=== PATIENT | female | born 1985 | race Caucasian/White ===

== ENCOUNTER → 2016-12-20 | Outpatient (CLI) | payer OTHER | LOC: RAD 07:37 | PROVIDERS: ATTEND Surgery | DX: N85.02 Endometrial intraepithelial neoplasia [EIN] (principal); R22.2 Localized swelling, mass and lump, trunk | CPT/HCPCS: 82565; 76856; 76830; 78306; 71260; A9503; Q9969 ==

== ENCOUNTER 2017-02-20 09:32 | Emergency (ER) | payer OTHER ==
--- NOTE | 2017-02-20 09:46 | ER Document Report ---
ED Medical Screen (RME) - General Chief Complaint: Vaginal Bleeding Stated Complaint: POST SURGERY BLEEDING Time Seen by Provider: 02/20/17 09:44 Notes: Patient had a hysterectomy for endometrial cancer 3 weeks ago and [place]. She had very little or no bleeding following her surgical procedure until she awakened this morning with "blood everywhere" her bed. Having some small amount of cramping. Says that yesterday she had a low-grade fever of 99. No other significant symptoms such as vomiting or diarrhea. PMH: NIDDM. TRAVEL OUTSIDE OF THE U[place]S. IN LAST 30 DAYS: No - Related Data Allergies/Adverse Reactions: No Known Allergies Allergy (Verified 02/20/17 09:42) Past Medical History - Past Medical History Cardiac Medical History: Reports: Hx Hypertension Pulmonary Medical History: Reports: Hx Bronchitis, Hx Pneumonia Endocrine Medical History: Reports: Hx Diabetes Mellitus Type 2 Renal/ Medical History: Denies: Hx Peritoneal Dialysis GI Medical History: Reports: Hx Gastroesophageal Reflux Disease Past Surgical History: Reports: Hx Appendectomy, Hx Tonsillectomy - T/A - Immunizations Hx Diphtheria, Pertussis, Tetanus Vaccination: Yes Physical Exam - Vital signs Vitals: Temp Pulse Resp BP Pulse Ox 98.1 F 102 H 16 143/101 H 97 02/20/17 09:37 02/20/17 09:37 02/20/17 09:37 02/20/17 09:37 02/20/17 09:37 Course - Vital Signs Vital signs: Temp Pulse Resp BP Pulse Ox 98.1 F 102 H 16 143/101 H 97 02/20/17 09:37 02/20/17 09:37 02/20/17 09:37 02/20/17 09:37 02/20/17 09:37
[2017-02-20 10:52] LABS: ABSOLUTE BASOPHILS # (AUTO) 0.1 10^3/uL (0.0-0.2); ABSOLUTE EOSINOPHILS # (AUTO) 0.3 10^3/uL (0.0-0.6); ABSOLUTE LYMPHOCYTES (AUTO) 2.6 10^3/uL (0.5-4.7); ABSOLUTE MONOCYTES (AUTO) 0.5 10^3/uL (0.1-1.4); ABSOLUTE NEUT (AUTO) 7.8 10^3/uL (1.7-8.2); BASOPHILS % (AUTO) 0.5 % (0-2); EOSINOPHILS % (AUTO) 2.3 % (0-6); HEMATOCRIT 39.5 % (36.0-47.0); HEMOGLOBIN 13.1 g/dL (12.0-15.5); HGB HCT DIFFERENCE -0.2; LYMPHOCYTES % (AUTO) 23.5 % (13-45); MEAN CORPUSCULAR HEMOGLOBIN 27.8 pg (27.0-33.4); MEAN CORPUSCULAR HGB CONC 33.1 g/dL (32.0-36.0); MEAN CORPUSCULAR VOLUME 84 fl (80-97); MONOCYTES % (AUTO) 4.8 % (3-13); RED BLOOD COUNT 4.71 10^6/uL (3.72-5.28); RED CELL DISTRIBUTION WIDTH 14.1 % (11.5-14.0); SEGMENTED NEUTROPHILS % (AUTO) 68.9 % (42-78); WHITE BLOOD COUNT 11.3 10^3/uL (4.0-10.5)
[2017-02-20 11:12] LABS: ALANINE AMINOTRANSFERASE 37 U/L (9-52); ALBUMIN 4.1 g/dL (3.5-5.0); ALKALINE PHOSPHATASE 113 U/L (38-126); ANION GAP 12 (5-19); ASPARTATE AMINO TRANSFERASE 17 U/L (14-36); BILIRUBIN,DIRECT 0.4 mg/dL (0.0-0.4); BILIRUBIN,TOTAL 0.7 mg/dL (0.2-1.3); BLOOD UREA NITROGEN 14 mg/dL (7-20); CALCIUM 9.6 mg/dL (8.4-10.2); CARBON DIOXIDE 27 mmol/L (22-30); CHLORIDE 101 mmol/L (98-107); CREATININE RESULT 0.51 mg/dL (0.52-1.25); GLUCOSE 125 mg/dL (75-110); POTASSIUM 3.8 mmol/L (3.6-5.0); SODIUM 140.1 mmol/L (137-145)
--- NOTE | 2017-02-20 11:30 | ER Document Report ---
ED General - General Chief Complaint: Vaginal Bleeding Stated Complaint: POST OP PROBLEMS Time Seen by Provider: 02/20/17 09:44 Mode of Arrival: Ambulatory Information source: Patient Notes: 31-year-old female who had a hysterectomy with ovaries in place due to a uterine cancer 3 weeks ago at [place] presents with spotting that occurred this morning. 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 Patient denies any abdominal pain patient notes temperature 99.9 yesterday denies any such symptoms today denies any vaginal discharge TRAVEL OUTSIDE OF THE U.S. IN LAST 30 DAYS: No - HPI Onset: This morning Onset/Duration: Sudden Quality of pain: Cramping Severity: Mild Pain Level: 1 Associated symptoms: Other Exacerbated by: Denies Relieved by: Denies Similar symptoms previously: No Recently seen / treated by doctor: Yes - Patient was seen by her surgeon 2 days prior - Related Data Allergies/Adverse Reactions: No Known Allergies Allergy (Verified 02/20/17 09:42) Past Medical History - Social History Smoking Status: Never Smoker Cigarette use (# per day): No Chew tobacco use (# tins/day): No Smoking Education Provided: No Family History: Reviewed & Not Pertinent - Past Medical History Cardiac Medical History: Reports: Hx Hypertension Pulmonary Medical History: Reports: Hx Bronchitis, Hx Pneumonia Endocrine Medical History: Reports: Hx Diabetes Mellitus Type 2 Renal/ Medical History: Denies: Hx Peritoneal Dialysis GI Medical History: Reports: Hx Gastroesophageal Reflux Disease Past Surgical History: Reports: Hx Appendectomy, Hx Tonsillectomy - T/A - Immunizations Hx Diphtheria, Pertussis, Tetanus Vaccination: Yes Review of Systems - Review of Systems Notes: PHYSICAL EXAMINATION: GENERAL: Well-appearing, well-nourished and in no acute distress. HEAD: Atraumatic, normocephalic. EYES: Pupils equal round and reactive to light, extraocular movements intact, conjunctiva are normal. ENT: Nares patent, oropharynx clear without exudates. Moist mucous membranes. NECK: Normal range of motion, supple without lymphadenopathy LUNGS: Breath sounds clear to auscultation bilaterally and equal. No wheezes rales or rhonchi. HEART: Regular rate and rhythm without murmurs ABDOMEN: Soft, nontender, nondistended abdomen. No guarding, no rebound. No masses appreciated. Female : Pelvic examination performed with tach in room notes only mild amount of blood with no active bleeding Musculoskeletal: Normal range of motion, no pitting or edema. No cyanosis. NEUROLOGICAL: Cranial nerves grossly intact. Normal speech, normal gait. Normal sensory, motor exams PSYCH: Normal mood, normal affect. SKIN: Four healing surgical incisions noted Physical Exam - Vital signs Vitals: Temp Pulse Resp BP Pulse Ox 98.1 F 102 H 16 143/101 H 97 02/20/17 09:37 02/20/17 09:37 02/20/17 09:37 02/20/17 09:37 02/20/17 09:37 Course - Re-evaluation Re-evalutation: 02/20/17 13:41 [facility] paged 02/20/17 13:59 Dr Sheffield has no other concerns will dc home , pt is very happy I believe the patient's bleeding is secondary to the sutures healing, ultrasound was negative blood work notes no significant abnormality Patient has not been actively bleeding in the emergency department 02/20/17 16:35 After performing a Medical Screening Examination, I estimate there is LOW risk for ACUTE APPENDICITIS, BOWEL OBSTRUCTION, ACUTE CHOLECYSTITIS, PERFORATED DIVERTICULITIS, INCARCERATED HERNIA, PANCREATITIS, PELVIC INFLAMMATORY DISEASE, PERFORATED ULCER, ECTOPIC , or TUBO-OVARIAN ABSCESS, thus I consider the discharge disposition reasonable. Also, there is no evidence or peritonitis , sepsis, or toxicity. I have reevaluated this patient multiple times and no significant life threatening changes are noted. The patient and I have discussed the diagnosis and risks, and we agree with discharging home with close follow-up with the understanding that symptoms and presentations can change. We also discussed returning to the Emergency Department immediately if new or worsening symptoms occur. We have discussed the symptoms which are most concerning (e.g., bloody stool, fever, changing or worsening pain, vomiting) that necessitate immediate return. - Vital Signs Vital signs: Temp Pulse Resp BP Pulse Ox 98.6 F 94 18 139/89 H 96 02/20/17 14:11 02/20/17 14:11 02/20/17 14:11 02/20/17 14:11 02/20/17 14:11 - Laboratory Result Diagrams: 02/20/17 10:42 02/20/17 10:42 Laboratory results interpreted by me: 02/20/17 02/20/17 10:42 10:42 WBC 11.3 H RDW 14.1 H Creatinine 0.51 L Glucose 125 H - Diagnostic Test Radiology reviewed: Image reviewed, Reports reviewed - Small amount of free fluid report given to patient Discharge - Discharge Clinical Impression: post hysterectomy bleeding, Vaginal bleeding Condition: Stable Disposition: HOME, SELF-CARE Additional Instructions: Follow up with your physician tomorrow for further care or return to the ED IMMEDIATELY if symptoms worsen or new concerns occur. If you cannot afford to follow up with your primary care physician a list of low cost clinics have been provided at the end of your discharge papers as well. Referrals: PREET SPENCER MD [Primary Care Provider] - Follow up as needed
--- NOTE | 2017-02-20 13:12 | RADIOLOGY REPORT (SQ) ---
EXAM DESCRIPTION: U/S NON-OB PELVIS TV W/O DOP COMPLETED DATE/TIME: 02/20/2017 12:53 pm REASON FOR STUDY: post hysterectomy bleeding COMPARISON: 12/20/2016 TECHNIQUE: Dynamic and static grayscale images acquired of the pelvis via transvaginal approach and recorded on PACS. Additional selected color Doppler and spectral images recorded. LIMITATIONS: None. FINDINGS: UTERUS: Surgically absent. ENDOMETRIAL STRIPE: Not applicable. CERVIX: Not applicable. RIGHT OVARY: No abnormal masses. RIGHT OVARY DOPPLER: Normal arterial vascular flow without evidence for torsion. LEFT OVARY: No abnormal masses. LEFT OVARY DOPPLER: Normal arterial vascular flow without evidence for torsion. FREE FLUID: There is a small amount free fluid. OTHER: No other significant finding. MEASUREMENTS: UTERUS: Not applicable. ENDOMETRIAL STRIPE: Not applicable. RIGHT OVARY: 28 x 20 x 21 mm LEFT OVARY: 29 x 26 x 25 mm IMPRESSION: There is a small amount of free fluid. The ovaries are unremarkable. TECHNICAL DOCUMENTATION: JOB ID: [id number] [employer]- All Rights Reserved
[2017-02-20 14:14] VITALS: BP 139/89
== END 2017-02-20 14:14 | disposition home or self-care (01) ==
LOC: ER 09:32
DX: N99.820 Postprocedural hemorrhage of a genitourinary system organ or structure following a genitourinary system procedure (principal); Y83.6 Removal of other organ (partial) (total) as the cause of abnormal reaction of the patient, or of later complication, without mention of misadventure at the time of the procedure; Z90.710 Acquired absence of both cervix and uterus; Z85.42 Personal history of malignant neoplasm of other parts of uterus; I10 Essential (primary) hypertension; E11.9 Type 2 diabetes mellitus without complications
CPT/HCPCS: 36415; 76830; 80053; 85025; 99284

== ENCOUNTER → 2017-09-18 | Outpatient (CLI) | payer OTHER ==
--- NOTE | 2017-09-18 11:12 | WOMENS IMAGING REPORT ---
EXAM DESCRIPTION: BILAT SCREENING MAMMO W/CAD COMPLETED DATE/TIME: 09/18/2017 8:24 am REASON FOR STUDY: ROUTINE SCREENING; Z12.31 Z12.31 ENCNTR SCREEN MAMMOGRAM FOR MALIGNANT NEOPLASM O F LEIGH COMPARISON: 2015 TECHNIQUE: Standard craniocaudal and mediolateral oblique views of each breast recorded using digita l acquisition. LIMITATIONS: None. FINDINGS: No masses, calcifications or architectural distortion. No areas of suspicion. Read with the assistance of CAD. .[facility] - R2 Cenova Version 1.3 .[facility] Imaging - R2 Cenova Version 1.3 .[facility] - R2 Cenova Version 2.4 .[facility] - R2 Cenova Version 2.4 .[facility] - R2 [employer] Version 9.2 IMPRESSION: NORMAL MAMMOGRAM. BIRADS 1. BREAST DENSITY: b. There are scattered areas of fibroglandular density. BIRAD: 1 NEGATIVE RECOMMENDATION: ROUTINE SCREENING COMMENT: The patient has been notified of the results by letter per SA requirements. Additional no tification policies are in place for contacting patient with suspicious or incomplete findings. Quality ID #[id number]: The [employer] recommends an annual screening mammogram for women aged 40 years or over. This facility utilizes a reminder system to ensure that all patients receive reminder letters, and/or direct phone calls for appointments. This includes reminders for routine scr eening mammograms, diagnostic mammograms, or other Breast Imaging Interventions when appropriate. Th is patient will be placed in the appropriate reminder system. The [employer] (ACR) has developed recommendations for screening MRI of the breast s in certain patient populations, to be used in conjunction with mammography. Breast MRI surveillanc e may be appropriate for women with more than 20% lifetime risk of developing breast cancer as deter mined by genetic testing, significant family history of the disease, or history of mantle radiation f or Hodgkins Disease. ACR Practice Guidelines 2008. TECHNICAL DOCUMENTATION: FINDING NUMBER: (1) ASSESSMENT: (1) JOB ID: [id number] [employer]- All Rights Reserved
== END ==
LOC: WI 07:50
PROVIDERS: ATTEND Physician Assistant
DX: Z12.31 Encounter for screening mammogram for malignant neoplasm of breast (principal)
CPT/HCPCS: 77067; G0202

== ENCOUNTER → 2017-10-11 | Outpatient (CLI) | payer OTHER ==
--- NOTE | 2017-10-11 13:53 | RADIOLOGY REPORT (SQ) ---
EXAM DESCRIPTION: T SPINE AP/LAT COMPLETED DATE/TIME: 10/11/2017 10:39 am REASON FOR STUDY: LOW BACK PAIN M54.6 PAIN IN THORACIC SPINE M54.5 LOW BACK PAIN COMPARISON: None. NUMBER OF VIEWS: Two views. TECHNIQUE: AP and lateral radiographic images acquired of the thoracic spine. LIMITATIONS: None. FINDINGS: MINERALIZATION: Normal. ALIGNMENT: Normal. No scoliosis. VERTEBRAE: No fracture or bone lesion. Maintained height, normal segmentation. DISCS: No significant loss of height or significant narrowing. No large osteophytes. HARDWARE: None in the spine. MEDIASTINUM AND SOFT TISSUES: Normal heart size and aortic contour. No soft tissue abnormality. VISUALIZED LUNG PIRES: Clear. OTHER: No other significant finding. IMPRESSION: NO SIGNIFICANT RADIOGRAPHIC FINDING IN THE THORACIC SPINE. TECHNICAL DOCUMENTATION: JOB ID: [id number] [employer]- All Rights Reserved
--- NOTE | 2017-10-11 13:54 | RADIOLOGY REPORT (SQ) ---
EXAM DESCRIPTION: L SPINE 2 VIEWS COMPLETED DATE/TIME: 10/11/2017 10:39 am REASON FOR STUDY: LOW BACK PAIN M54.6 PAIN IN THORACIC SPINE M54.5 LOW BACK PAIN COMPARISON: None. NUMBER OF VIEWS: Three views. TECHNIQUE: AP, lateral and sacral radiographic images acquired of the lumbar spine. LIMITATIONS: None. FINDINGS: MINERALIZATION: Normal. SEGMENTATION: Normal. No transitional anatomy. ALIGNMENT: Normal. VERTEBRAE: Maintained height. No fracture or worrisome bone lesion. DISCS: Preserved height. No significant osteophytes or end plate irregularity. POSTERIOR ELEMENTS: Pedicles and facets are intact. No pars defect or posterior arch defects. HARDWARE: None in the spine. PARASPINAL SOFT TISSUES: Normal. PELVIS: Intact as visualized. No fractures or worrisome bone lesions. SI joints intact. OTHER: No other significant finding. IMPRESSION: NORMAL 3 VIEW LUMBAR SPINE. TECHNICAL DOCUMENTATION: JOB ID: [id number] [employer]- All Rights Reserved
== END ==
LOC: RAD 09:54
PROVIDERS: ATTEND Physician Assistant
DX: M54.6 Pain in thoracic spine (principal); M54.5 Low back pain
CPT/HCPCS: 72070; 72100

== ENCOUNTER → 2018-04-10 | Outpatient (CLI) | payer BC ==
--- NOTE | 2018-04-10 09:45 | RADIOLOGY REPORT (SQ) ---
EXAM DESCRIPTION: U/S NON-OB PELVIS TV W/O DOP COMPLETED DATE/TIME: 04/10/2018 9:33 am REASON FOR STUDY: ENDOMETRIAL CA (C54.1) C54.1 MALIGNANT NEOPLASM OF ENDOMETRIUM COMPARISON: January 2017 TECHNIQUE: Dynamic and static grayscale images acquired of the pelvis via transabdominal and transva ginal approach and recorded on PACS. Additional selected color Doppler and spectral images recorded. LIMITATIONS: Study is limited due to the patient's body habitus and overlying bowel gas. FINDINGS: UTERUS: Status post hysterectomy. RIGHT OVARY AND DOPPLER: Right ovary was not visualized. LEFT OVARY AND DOPPLER: Left ovary was not visualized. FREE FLUID: None noted. OTHER: No other significant finding. IMPRESSION: Limited study as noted above. Status post hysterectomy. No significant pelvic abnormal ities were identified. TECHNICAL DOCUMENTATION: JOB ID: [id number] [employer]- All Rights Reserved Rev-02/13 Reading location - IP/workstation name: [email or web address]
--- NOTE | 2018-04-10 09:46 | RADIOLOGY REPORT (SQ) ---
EXAM DESCRIPTION: U/S NON-OB PELVIS W/O DOP COMPLETE DATE/TIME: 04/10/2018 9:33 am REASON FOR STUDY: ENDOMETRIAL CA (C54.1) C54.1 MALIGNANT NEOPLASM OF ENDOMETRIUM FINDINGS: Please see combined report for performance of procedure and radiologic supervision and int erpretation. IMPRESSION: Please see combined report for performance of procedure and radiologic supervision and i nterpretation. Reading location - IP/workstation name: [email or web address]
== END ==
LOC: RAD 08:47
PROVIDERS: ATTEND Obstetrics & Gynecology Gynecologic Oncology
DX: C54.1 Malignant neoplasm of endometrium (principal)
CPT/HCPCS: 76830; 76856

== ENCOUNTER 2018-08-31 09:10 | Emergency (ER) | payer BC ==
[2018-08-31] MEDS ORDERED: NORMAL SALINE 1000 ML 1,000 ML IV ONE (09:19)
--- NOTE | 2018-08-31 09:31 | ER Document Report ---
ED GI/ - General Chief Complaint: Flank Pain Stated Complaint: FLANK PAIN Time Seen by Provider: 08/31/18 09:17 Mode of Arrival: Ambulatory Information source: Patient Notes: 33-year-old female presented to ED for complaint of right flank pain with cramping. She states she has been experiencing urinary incontinence. She has a history of endometrial cancer but has been in remission. She had a partial hysterectomy she still has her ovaries. Patient is alert and oriented respirations regular and unlabored speaking in full sentences has minimal pain in her abdomen but more pain in her right CVA. TRAVEL OUTSIDE OF THE [place] IN LAST 30 DAYS: No - HPI Patient complains to provider of: Flank pain - Right Onset: Other - months Timing/Duration: Intermittent Quality of pain: Sharp Severity at maximum: Moderate Severity in ED: Moderate Pain Level: 3 Location: Right flank Vaginal bleeding (Compared to normal period): None Menstrual period history: Post-menopausal - hysterectomy Associated symptoms: Other - leaking urine Exacerbated by: Movement Relieved by: Denies Similar symptoms previously: Yes Recently seen / treated by doctor: No - Related Data Allergies/Adverse Reactions: No Known Allergies Allergy (Verified 08/31/18 09:11) Past Medical History - General Information source: Patient - Social History Smoking Status: Never Smoker Frequency of alcohol use: None Lives with: Family Family History: Reviewed & Not Pertinent Patient has suicidal ideation: No Patient has homicidal ideation: No - Past Medical History Cardiac Medical History: Reports: Hx Hypertension Pulmonary Medical History: Reports: Hx Bronchitis, Hx Pneumonia EENT Medical History: Reports: None Neurological Medical History: Reports: None Endocrine Medical History: Reports: Hx Diabetes Mellitus Type 2 Renal/ Medical History: Reports: None Malignancy Medical History: Reports: Other - Endometrial cancer with a hysterectomy GI Medical History: Reports: Hx Gastroesophageal Reflux Disease Musculoskeletal Medical History: Reports Hx Musculoskeletal Deformity, Reports Hx Musculoskeletal Trauma Skin Medical History: Reports None Psychiatric Medical History: Reports: None Traumatic Medical History: Reports: None Infectious Medical History: Reports: None Past Surgical History: Reports: Hx Appendectomy, Hx Hysterectomy, Hx Tonsillectomy - T/A - Immunizations Immunizations up to date: Yes Hx Diphtheria, Pertussis, Tetanus Vaccination: Yes Review of Systems - Review of Systems Constitutional: No symptoms reported EENT: No symptoms reported Cardiovascular: No symptoms reported Respiratory: No symptoms reported Gastrointestinal: No symptoms reported Genitourinary: Flank pain, Incontinence Female Genitourinary: No symptoms reported Musculoskeletal: No symptoms reported Skin: No symptoms reported Hematologic/Lymphatic: No symptoms reported Neurological/Psychological: No symptoms reported -: Yes All other systems reviewed and negative Physical Exam - Vital signs Vitals: Temp Pulse Resp BP Pulse Ox 98.6 F 74 16 141/97 H 96 08/31/18 09:14 08/31/18 09:14 08/31/18 09:14 08/31/18 09:14 08/31/18 09:14 Interpretation: Normal - General General appearance: Appears well, Alert Notes: Morbidly obese at 153.8 kg - HEENT Head: Normocephalic, Atraumatic Eyes: Normal Pupils: PERRL - Respiratory Respiratory status: No respiratory distress Chest status: Nontender Breath sounds: Normal Chest palpation: Normal - Cardiovascular Rhythm: Regular Heart sounds: Normal auscultation Murmur: No - Abdominal Inspection: Normal Distension: No distension Bowel sounds: Normal Tenderness: Tender - Right flank Organomegaly: No organomegaly - Back Back: Normal, Tender, CVA tenderness - Right. No: Deformity/step-off, Vertebra tenderness, Scars, Scoliosis, Wounds - Extremities General upper extremity: Normal inspection, Nontender, Normal color, Normal ROM , Normal temperature General lower extremity: Normal inspection, Nontender, Normal color, Normal ROM , Normal temperature, Normal weight bearing. No: María's sign - Neurological Neuro grossly intact: Yes Cognition: Normal Orientation: AAOx4 [place] Coma Scale Eye Opening: Spontaneous Vero Coma Scale Verbal: Oriented Vero Coma Scale Motor: Obeys Commands Vero Coma Scale Total: 15 Speech: Normal Motor strength normal: LUE, RUE, LLE, RLE Sensory: Normal - Psychological Associated symptoms: Normal affect, Normal mood - Skin Skin Temperature: Warm Skin Moisture: Dry Skin Color: Normal Course - Vital Signs Vital signs: Temp Pulse Resp BP Pulse Ox 98.4 F 85 16 128/94 H 97 08/31/18 11:50 08/31/18 11:50 08/31/18 11:50 08/31/18 11:50 08/31/18 11:50 - Laboratory Result Diagrams: 08/31/18 10:02 08/31/18 10:02 Laboratory results interpreted by me: 08/31/18 10:02 Creatinine 0.43 L Glucose 160 H - Diagnostic Test Radiology reviewed: Image reviewed, Reports reviewed Discharge - Discharge Clinical Impression: Right flank pain Condition: Stable Disposition: HOME, SELF-CARE Additional Instructions: Flank Pain We weren't able to prove an exact cause for your flank pain. Pain in the flank can be caused by a muscle strain or spasm. Sometimes a kidney stone causes pain, but can't be found on our tests. Infection in the kidney should be evident on a urine test. Early shingles can occasionally cause flank pain, without the rash that proves the diagnosis. On rare occasions, disease of the pancreas, aorta, spleen, or colon can create pain in the flank. At this time, there's no evidence of a dangerous condition, and it seems safe for you to be at home. If the pain goes away and does not come back, no further testing will be needed. If pain persists, or becomes more severe, we may need to repeat some tests or order additional new testing. Blood in the urine, urgency to urinate frequently, and pain that radiates to the groin can indicate a kidney stone. Fever may mean that the pain is due to infection, either of the kidney or the colon (diverticulitis). If your pain is early shingles, you should develop an eruption of blisters in the painful area within a few days. Call the doctor or return if you have pain that is spreading or becoming more severe, pain that does not resolve with time, fever, or any other new symptoms. Discussed your CT and lab values with you. There is no obvious reason for the flank pain except for muscle pain. Please follow-up with your primary care doctor and take your labs and CT report with you. Ibuprofen Ibuprofen is an excellent, safe drug for pain control. In addition, it has potent antiinflammatory effects which are beneficial, especially in the treatment of injuries, arthritis, or tendonitis. It's best to take ibuprofen with food. Persons with ulcer disease or allergy to aspirin should notify their physician of this before taking ibuprofen. Take the medication exactly as prescribed. Don't take additional doses unless instructed to do so by your doctor. If you develop wheezing, shortness of breath, hives, faintness, stomach pain, vomiting, or dark black stools, return for re-evaluation at once. Ice Packs Apply ice packs frequently against the painful area. Many different schedules are recommended, such as "20 minutes on, 20 minutes off" or "one hour ice, two hours rest." If you need to work, you may need to go longer between ice treatments. You should plan to have the area ice packed AT LEAST one fourth of the time. The ice should be applied over the wrap, tape, or splint, or over a layer of cloth -- not directly against the skin. Some ice bags have a built-in cloth and can be put directly on the skin. Warm Packs After approximately two days, apply gentle heat (such as a heating pad or hot water bottle) for about 20 to 30 minutes about every two hours -- at least four times daily. Warmth and elevation will help you make a more rapid recovery , and will ease the pain considerably. Do not use HOT heat, and never apply heat for longer than 30 minutes. The continuous heat can invisibly damage skin and muscles -- even when no burn is seen on the surface. Damaged muscles can make you MORE sore. Muscle Relaxers Muscle relaxing medications are usually prescribed for acute muscle spasm or injury to the neck and back. They are often combined with antiinflammatory pain medication for increased relief. You may stop the muscle relaxer when the pain and stiffness have improved. Start the medication again if spasms recur. Muscle relaxers may cause drowsiness, especially with the first dose. Do not operate machinery or drive while under the effects of the medication. Most muscle relaxers last up to 24 hours. Do not combine the medication with alcohol. Follow-Up Care Although no definite follow-up visit has been scheduled for you, you should return if there is unexpected worsening or a significant change in your symptoms. Prescriptions: Cyclobenzaprine HCl [Flexeril 10 mg Tablet] 10 mg PO TIDP PRN #15 tab PRN Reason: Forms: Elevated Blood Pressure, Return to Work Referrals: KAEL GOLDEN MD [NO LOCAL MD] - Follow up as needed
[2018-08-31 10:26] LABS: ABSOLUTE EOSINOPHILS # (AUTO) 0.2 10^3/uL (0.0-0.6); ABSOLUTE LYMPHOCYTES (AUTO) 2.5 10^3/uL (0.5-4.7); ABSOLUTE MONOCYTES (AUTO) 0.3 10^3/uL (0.1-1.4); ABSOLUTE NEUT (AUTO) 5.4 10^3/uL (1.7-8.2); BASOPHILS % (AUTO) 0.2 % (0-2); EOSINOPHILS % (AUTO) 2.1 % (0-6); HEMATOCRIT 39.8 % (36.0-47.0); HEMOGLOBIN 13.3 g/dL (12.0-15.5); LYMPHOCYTES % (AUTO) 29.9 % (13-45); MEAN CORPUSCULAR HEMOGLOBIN 27.6 pg (27.0-33.4); MEAN CORPUSCULAR HGB CONC 33.5 g/dL (32.0-36.0); MEAN CORPUSCULAR VOLUME 82 fl (80-97); MONOCYTES % (AUTO) 3.8 % (3-13); PLATELET COUNT 379 10^3/uL (150-450); RED BLOOD COUNT 4.83 10^6/uL (3.72-5.28); TOTAL CELLS COUNTED % (AUTO) 100 %; WHITE BLOOD COUNT 8.5 10^3/uL (4.0-10.5)
--- NOTE | 2018-08-31 10:46 | RADIOLOGY REPORT (SQ) ---
EXAM DESCRIPTION: CT LTD RENAL STONE PROTOCOL ON COMPLETED DATE/TIME: 08/31/2018 10:29 am REASON FOR STUDY: right flank pain COMPARISON: None. TECHNIQUE: CT scan of the abdomen and pelvis performed without intravenous or oral contrast. Images reviewed with lung, soft tissue, and bone windows. Reconstructed coronal and sagittal MPR images revi ewed. All images stored on PACS. All CT scanners at this facility use dose modulation, iterative reconstruction, and/or weight based d osing when appropriate to reduce radiation dose to as low as reasonably achievable (ALARA). [facility]: Dose Right [facility]: CareDose [facility]: Dose Right [facility]: Teradose 4D [facility]: Smart Technologies RADIATION DOSE: CT Rad equipment meets quality standard of care and radiation dose reduction techniq ues were employed. CTDIvol: 19.2 mGy. DLP: 1166 mGy-cm. LIMITATIONS: None. FINDINGS: LOWER CHEST: Borderline low right cardio phrenic lymph node measures 9-10 mm in short axi s diameter. NON-CONTRASTED LIVER, SPLEEN, ADRENALS: Evaluation limited by lack of IV contrast. No identified sign ificant masses. PANCREAS: No masses. No peripancreatic inflammatory changes. GALLBLADDER: No identified stones by CT criteria. No inflammatory changes to suggest cholecystitis. RIGHT KIDNEY AND URETER: No suspicious masses. Assessment limited by lack of IV contrast. No signif icant calcifications. No hydronephrosis or hydroureter. LEFT KIDNEY AND URETER: No suspicious masses. Assessment limited by lack of IV contrast. No signifi cant calcifications. No hydronephrosis or hydroureter. AORTA AND RETROPERITONEUM: No aneurysm. No retroperitoneal masses or adenopathy. BOWEL AND PERITONEAL CAVITY: No obvious masses or inflammatory changes. No free fluid. APPENDIX: Prior appendectomy. PELVIS, BLADDER, AND ABDOMINAL WALL: Prior hysterectomy. No abnormal masses. No free fluid. Bladder normal. BONES: No significant findings. OTHER: No other significant finding. IMPRESSION: 1. NO SIGNIFICANT OR ACUTE PROCESS IN THE ABDOMEN OR PELVIS. 2. Prior appendectomy and hysterectomy. COMMENT: Quality ID # [id number]: Final reports with documentation of one or more dose reduction techniques (e.g., Automated exposure control, adjustment of the mA and/or kV according to patient size, use of iterative reconstruction technique) TECHNICAL DOCUMENTATION: JOB ID: [id number]- All Rights Reserved Reading location - IP/workstation name: [email or web address]
[2018-08-31 10:50] LABS: ALANINE AMINOTRANSFERASE 29 U/L (9-52); ALBUMIN 4.1 g/dL (3.5-5.0); ALKALINE PHOSPHATASE 109 U/L (38-126); ANION GAP 11 (5-19); ASPARTATE AMINO TRANSFERASE 23 U/L (14-36); BILIRUBIN,DIRECT 0.2 mg/dL (0.0-0.4); BILIRUBIN,TOTAL 0.5 mg/dL (0.2-1.3); BLOOD UREA NITROGEN 12 mg/dL (7-20); CARBON DIOXIDE 30 mmol/L (22-30); CHLORIDE 101 mmol/L (98-107); GLUCOSE 160 mg/dL (75-110); POTASSIUM 3.9 mmol/L (3.6-5.0); SODIUM 141.8 mmol/L (137-145); TOTAL PROTEIN 7.1 g/dL (6.3-8.2)
[2018-08-31 11:15] LABS: APPEARANCE,URINE SLIGHTLY-CLOUDY; BILIRUBIN,URINE NEGATIVE (NEGATIVE); COLOR,URINE YELLOW; GLUCOSE, URINE NEGATIVE (NEGATIVE); KETONES,URINE NEGATIVE (NEGATIVE); LEUKOCYTE ESTERASE,URINE NEGATIVE (NEGATIVE); NITRITE,URINE NEGATIVE (NEGATIVE); PROTEIN,URINE NEGATIVE (NEGATIVE); URINE SPECIFIC GRAVITY 1.016; UROBILINOGEN,URINE NEGATIVE mg/dL (<2.0)
[2018-08-31 11:51] VITALS: BP 128/94
== END 2018-08-31 12:04 | disposition home or self-care (01) ==
LOC: ER 09:10
DX: R10.9 Unspecified abdominal pain (principal); R32 Unspecified urinary incontinence; Z85.44 Personal history of malignant neoplasm of other female genital organs; Z90.711 Acquired absence of uterus with remaining cervical stump; I10 Essential (primary) hypertension; E11.9 Type 2 diabetes mellitus without complications
CPT/HCPCS: 99284; 96360; 36415; 85025; 80053; 81001; 76380; J7030

== ENCOUNTER → 2018-09-23 | Outpatient (CLI) | payer BC, OTHER ==
--- NOTE | 2018-09-23 14:06 | WOMENS IMAGING REPORT ---
EXAM DESCRIPTION: BILAT SCREENING MAMMO W/CAD COMPLETED DATE/TIME: 09/23/2018 1:29 pm REASON FOR STUDY: SCREENING MAMMO Z12.31 ENCNTR SCREEN MAMMOGRAM FOR MALIGNANT NEOPLASM OF LEIGH COMPARISON: 2015 TECHNIQUE: Standard craniocaudal and mediolateral oblique views of each breast recorded using digita l acquisition. LIMITATIONS: None. FINDINGS: No masses, calcifications or architectural distortion. No areas of suspicion. Read with the assistance of CAD. .[facility] - R2 Cenova Version 1.3 .[facility] Imaging - R2 Cenova Version 1.3 .[facility] Imaging - R2 Cenova Version 2.4 .[facility] - R2 Cenova Version 2.4 .[facility] - R2 [employer] Version 9.2 IMPRESSION: NORMAL MAMMOGRAM. BIRADS 1. BREAST DENSITY: b. There are scattered areas of fibroglandular density. BIRAD: 1 NEGATIVE RECOMMENDATION: ROUTINE SCREENING COMMENT: The patient has been notified of the results by letter per MQSA requirements. Additional no tification policies are in place for contacting patient with suspicious or incomplete findings. Quality ID #225: The [employer] recommends an annual screening mammogram for women aged 40 years or over. This facility utilizes a reminder system to ensure that all patients receive reminder letters, and/or direct phone calls for appointments. This includes reminders for routine scr eening mammograms, diagnostic mammograms, or other Breast Imaging Interventions when appropriate. Th is patient will be placed in the appropriate reminder system. The [employer] (ACR) has developed recommendations for screening MRI of the breast s in certain patient populations, to be used in conjunction with mammography. Breast MRI surveillanc e may be appropriate for women with more than 20% lifetime risk of developing breast cancer as deter mined by genetic testing, significant family history of the disease, or history of mantle radiation f or Hodgkins Disease. ACR Practice Guidelines 2008. TECHNICAL DOCUMENTATION: FINDING NUMBER: (1) ASSESSMENT: (1) JOB ID: [id number] [employer]- All Rights Reserved Reading location - IP/workstation name: [email or web address]-[email or web address]
== END ==
LOC: WI 13:02
PROVIDERS: ATTEND Physician Assistant
DX: Z12.31 Encounter for screening mammogram for malignant neoplasm of breast (principal)
CPT/HCPCS: 77067

== ENCOUNTER → 2018-10-06 | Outpatient (CLI) | payer BC ==
--- NOTE | 2018-10-06 17:24 | RADIOLOGY REPORT (SQ) ---
EXAM DESCRIPTION: U/S NON-OB PELVIS W/O DOP COMPLETED DATE/TIME: 10/06/2018 5:11 pm REASON FOR STUDY: C54.1 MALIGNANT NEOPLASM OF ENDOMETRIUM C54.1 MALIGNANT NEOPLASM OF ENDOMETRIUM COMPARISON: 04/10/2018 TECHNIQUE: Dynamic and static grayscale images acquired of the pelvis via transabdominal approach an d recorded on PACS. Additional selected color Doppler and spectral images recorded. LIMITATIONS: None. FINDINGS: UTERUS: Surgically absent. ENDOMETRIAL STRIPE: See above CERVIX: See above RIGHT OVARY AND DOPPLER: Normal size. No worrisome masses. Normal arterial vascular flow without evid ence for torsion. LEFT OVARY AND DOPPLER: Normal size. No worrisome masses. Normal arterial vascular flow without evide nce for torsion. FREE FLUID: None noted. OTHER: No other significant finding. MEASUREMENTS: UTERUS: Surgically absent. ENDOMETRIAL STRIPE: Not applicable. RIGHT OVARY: 2.7 x 1.8 x 2 cm LEFT OVARY: 2.5 x 1.8 x 1.5 cm IMPRESSION: No ovarian pathology. Uterus is surgically absent. TECHNICAL DOCUMENTATION: JOB ID: [id number] [employer]- All Rights Reserved Rev-02/13 Reading location - IP/workstation name: [email or web address]
--- NOTE | 2018-10-06 17:26 | RADIOLOGY REPORT (SQ) ---
EXAM DESCRIPTION: U/S NON-OB PELVIS TV W/O DOP COMPLETED DATE/TIME: 10/06/2018 5:11 pm REASON FOR STUDY: C54.1 MALIGNANT NEOPLASM OF ENDOMETRIUM C54.1 MALIGNANT NEOPLASM OF ENDOMETRIUM COMPARISON: None. TECHNIQUE: Dynamic and static grayscale images acquired of the pelvis via transvaginal approach and recorded on PACS. Additional selected color Doppler and spectral images recorded. LIMITATIONS: None. FINDINGS: UTERUS: Surgically absent. ENDOMETRIAL STRIPE: See above CERVIX: See above RIGHT OVARY AND DOPPLER: Normal size. No worrisome masses. Normal arterial vascular flow without evid ence for torsion. LEFT OVARY AND DOPPLER: Normal size. No worrisome masses. Normal arterial vascular flow without evide nce for torsion. FREE FLUID: None noted. OTHER: No other significant finding. MEASUREMENTS: UTERUS: Surgically absent. ENDOMETRIAL STRIPE: Not applicable. RIGHT OVARY: 2.7 x 1.8 x 2 cm LEFT OVARY: 2.5 x 1.8 x 1.5 cm IMPRESSION: No ovarian pathology. Uterus is surgically absent. TECHNICAL DOCUMENTATION: JOB ID: [id number]- All Rights Reserved Rev-02/13 Reading location - IP/workstation name: [email or web address]
== END ==
LOC: RAD 17:34
PROVIDERS: ATTEND Obstetrics & Gynecology Gynecologic Oncology
DX: C54.1 Malignant neoplasm of endometrium (principal); N83.201 Unspecified ovarian cyst, right side; N83.202 Unspecified ovarian cyst, left side
CPT/HCPCS: 76830; 76856

== ENCOUNTER → 2018-11-12 | Outpatient (CLI) | payer BC ==
--- NOTE | 2018-11-12 14:25 | WOMENS IMAGING REPORT ---
EXAM DESCRIPTION: BILAT DIAGNOSTIC MAMMO W/CAD; U/S BREAST UNILAT LIMITED COMPLETED DATE/TIME: 11/12/2018 1:04 pm; 11/12/2018 1:41 pm REASON FOR STUDY: BILATERAL BREAST LUMPS N63; N63 RIGHT BREAST LUMP; N63 LEFT BREAST LUMP COMPARISON: Multiple previous mammograms since 2016 TECHNIQUE: Cone compression craniocaudal and mediolateral oblique views of each breast recorded usin g digital acquisition. Additional right breast exaggerated craniocaudad view Bilateral breast ultrasound was performed in the area of palpable abnormalities. LIMITATIONS: None. FINDINGS: RIGHT BREAST MASSES: Patient indicates a palpable abnormality at the 12 o'clock position. Just deep to the palpab le marker, a intramammary lymph node is present measuring about 1.7 cm in size. CALCIFICATIONS: No new or suspicious calcifications. ARCHITECTURAL DISTORTION: None. DEVELOPING DENSITY: None. ASYMMETRY: None noted. OTHER: No other significant findings. LEFT BREAST MASSES: Patient indicates a palpable abnormality in the left breast lower outer quadrant. No mammogr aphic nodules are seen adjacent to the marker indicating the palpable abnormality CALCIFICATIONS: No new or suspicious calcifications. ARCHITECTURAL DISTORTION: None. DEVELOPING DENSITY: None. ASYMMETRY: None noted. OTHER: No other significant finding. Read with the assistance of CAD: .[facility] - R2 Cenova Version 1.3 .[facility] Imaging - R2 Cenova Version 2.1 .[facility] Imaging - R2 Cenova Version 2.4 .[facility] - R2 Cenova Version 2.4 .[facility] - R2 [employer] Version 9.2 Bilateral breast ultrasound: On the right side, in the area indicated by the patient as a palpable finding, a 1.6 x 0.7 cm lymph n ode is present without worrisome features. Normal cortical thickness and echogenicity. Preserved ce ntral hilar fat. Adjacent 9 mm, 5 mm, and 4 mm anechoic cystic structures are present likely benign breast parenchymal cysts or oil cysts. Six-month follow-up ultrasound of this area is recommended to exclude growth or change. On the left side, ultrasound imaging of the breast was performed from the 5 to 8 o'clock position. N o discrete cystic or solid lesions. No focal findings. No worrisome acoustic absorption. IMPRESSION: No mammographic or sonographic evidence for malignancy left breast In the right breast area of palpable abnormality 12 to 1 o'clock position, a intramammary lymph node is present with adjacent benign-appearing cysts or oil cysts. Short interval follow-up six-month fol low-up ultrasound is recommended to exclude growth or change BREAST DENSITY: b. There are scattered areas of fibroglandular density. BIRAD: 3 Probably benign finding. Initial short-interval follow-up suggested. RECOMMENDATION: RECOMMENDED FOLLOW UP: Six-month follow-up right breast ultrasound at the 12 to 1 o' clock position SPECIFIC INTERVENTION/IMAGING/CONSULTATION RECOMMENDED:Six-month follow-up right breast ultrasound at the 12 to 1 o'clock position COMMUNICATION:Patient notified by letter COMMENT: The patient has been notified of the results by letter per SA requirements. Additional no tification policies are in place for contacting patient with suspicious or incomplete findings. Quality ID #225: The [employer] recommends an annual screening mammogram for women aged 40 years or over. This facility utilizes a reminder system to ensure that all patients receive reminder letters, and/or direct phone calls for appointments. This includes reminders for routine scr eening mammograms, diagnostic mammograms, or other Breast Imaging Interventions when appropriate. Th is patient will be placed in the appropriate reminder system. The [employer] (ACR) has developed recommendations for screening MRI of the breast s in certain patient populations, to be used in conjunction with mammography. Breast MRI surveillanc e may be appropriate for women with more than 20% lifetime risk of developing breast cancer as deter mined by genetic testing, significant family history of the disease, or history of mantle radiation f or Hodgkins Disease. ACR Practice Guidelines 2008. TECHNICAL DOCUMENTATION: FINDING NUMBER: (1) ASSESSMENT: (1) JOB ID: [id number] [employer]- All Rights Reserved Reading location - IP/workstation name: [email or web address]
--- NOTE | 2018-11-12 14:25 | WOMENS IMAGING REPORT ---
EXAM DESCRIPTION: BILAT DIAGNOSTIC MAMMO W/CAD; U/S BREAST UNILAT LIMITED COMPLETED DATE/TIME: 11/12/2018 1:04 pm; 11/12/2018 1:41 pm REASON FOR STUDY: BILATERAL BREAST LUMPS N63; N63 RIGHT BREAST LUMP; N63 LEFT BREAST LUMP COMPARISON: Multiple previous mammograms since 2016 TECHNIQUE: Cone compression craniocaudal and mediolateral oblique views of each breast recorded usin g digital acquisition. Additional right breast exaggerated craniocaudad view Bilateral breast ultrasound was performed in the area of palpable abnormalities. LIMITATIONS: None. FINDINGS: RIGHT BREAST MASSES: Patient indicates a palpable abnormality at the 12 o'clock position. Just deep to the palpab le marker, a intramammary lymph node is present measuring about 1.7 cm in size. CALCIFICATIONS: No new or suspicious calcifications. ARCHITECTURAL DISTORTION: None. DEVELOPING DENSITY: None. ASYMMETRY: None noted. OTHER: No other significant findings. LEFT BREAST MASSES: Patient indicates a palpable abnormality in the left breast lower outer quadrant. No mammogr aphic nodules are seen adjacent to the marker indicating the palpable abnormality CALCIFICATIONS: No new or suspicious calcifications. ARCHITECTURAL DISTORTION: None. DEVELOPING DENSITY: None. ASYMMETRY: None noted. OTHER: No other significant finding. Read with the assistance of CAD: .[facility] - R2 Cenova Version 1.3 .[facility] Imaging - R2 Cenova Version 2.1 .[facility] Imaging - R2 Cenova Version 2.4 .[facility] - R2 Cenova Version 2.4 .[facility] - R2 Director Of Housing [employer] Energy Services Version 9.2 Bilateral breast ultrasound: On the right side, in the area indicated by the patient as a palpable finding, a 1.6 x 0.7 cm lymph n ode is present without worrisome features. Normal cortical thickness and echogenicity. Preserved ce ntral hilar fat. Adjacent 9 mm, 5 mm, and 4 mm anechoic cystic structures are present likely benign breast parenchymal cysts or oil cysts. Six-month follow-up ultrasound of this area is recommended to exclude growth or change. On the left side, ultrasound imaging of the breast was performed from the 5 to 8 o'clock position. N o discrete cystic or solid lesions. No focal findings. No worrisome acoustic absorption. IMPRESSION: No mammographic or sonographic evidence for malignancy left breast In the right breast area of palpable abnormality 12 to 1 o'clock position, a intramammary lymph node is present with adjacent benign-appearing cysts or oil cysts. Short interval follow-up six-month fol low-up ultrasound is recommended to exclude growth or change BREAST DENSITY: b. There are scattered areas of fibroglandular density. BIRAD: 3 Probably benign finding. Initial short-interval follow-up suggested. RECOMMENDATION: RECOMMENDED FOLLOW UP: Six-month follow-up right breast ultrasound at the 12 to 1 o' clock position SPECIFIC INTERVENTION/IMAGING/CONSULTATION RECOMMENDED:Six-month follow-up right breast ultrasound at the 12 to 1 o'clock position COMMUNICATION:Patient notified by letter COMMENT: The patient has been notified of the results by letter per SA requirements. Additional no tification policies are in place for contacting patient with suspicious or incomplete findings. Quality ID #225: The [employer] recommends an annual screening mammogram for women aged 40 years or over. This facility utilizes a reminder system to ensure that all patients receive reminder letters, and/or direct phone calls for appointments. This includes reminders for routine scr eening mammograms, diagnostic mammograms, or other Breast Imaging Interventions when appropriate. Th is patient will be placed in the appropriate reminder system. The [employer] (ACR) has developed recommendations for screening MRI of the breast s in certain patient populations, to be used in conjunction with mammography. Breast MRI surveillanc e may be appropriate for women with more than 20% lifetime risk of developing breast cancer as deter mined by genetic testing, significant family history of the disease, or history of mantle radiation f or Hodgkins Disease. ACR Practice Guidelines 2008. TECHNICAL DOCUMENTATION: FINDING NUMBER: (1) ASSESSMENT: (1) JOB ID: [id number] [employer]- All Rights Reserved Reading location - IP/workstation name: [email or web address]
== END ==
LOC: WI 12:48
PROVIDERS: ATTEND Internal Medicine Hematology & Oncology
DX: N63.23 Unspecified lump in the left breast, lower outer quadrant (principal); N60.02 Solitary cyst of left breast
CPT/HCPCS: 76642; 77066

== ENCOUNTER → 2018-11-27 | Day surgery (SDC) | payer BC ==
[~2018-11-27] MED LIST: LIDOCAINE 1% INJ-PF (10 MG/ML) 30 ML SDV ONE
--- NOTE | 2018-12-01 14:32 | WOMENS IMAGING REPORT ---
EXAM DESCRIPTION: U/S BREAST BX; RIGHT DIG DX MAMMO NO CHG COMPLETED DATE/TIME: 12/01/2018 1:17 pm; 11/27/2018 2:25 pm REASON FOR STUDY: N63.0 LUMP IN BREAST; N63 S/P US BX RIGHT BREAST FOR CLIP PLACEMENT N63.0 UNSPECI FIED LUMP IN UNSPECIFIED BREAST COMPARISON: None. TECHNIQUE: The procedure was discussed with the patient and the patient agreed to proceed. The patient was scanned and the area of interest in the 12 to 1 o'clock position 15 cm from the nipp le of the right breast was localized. This correlates with the area of concern on prior imaging stud ies. This area was targeted for ultrasound-guided core biopsy. After sterile skin prep and 3.5 mL local lidocaine 1% for skin and deep tissue anesthesia, a 14 gauge coaxial core biopsy needle was used to obtain several cores of tissue from the lesion. Under ultras ound guidance, a ribbon clip was placed in the areas sampled. There were no immediate post-procedure complications. MAMMOGRAM: Post-procedure two view mammogram was acquired in the digital mammogram suite. The clip wa s in the expected location. No significant hematoma. 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 Fibrofatty connective tissue without atypia or malignancy. Pathology is concordant. LIMITATIONS: None. FINDINGS: Ultrasound guided breast biopsy as described above. POST PROCEDURE MAMMOGRAMS FOR MARKER PLACEMENT: Yes IMPRESSION: ULTRASOUND-GUIDED CORE BIOPSY OF THE RIGHT BREAST YIELDS A DIAGNOSIS OF FAT NECROSIS BI-RADS 2 benign findings COMMENT: COMMUNICATION: Findings discussed with the patient 1400 hours 12/01/2018. She understands th at this biopsy was benign. Follow-up mammography as per Dr. Diane Patient medication list reviewed: Yes- Quality ID# [id number]:Eligible professional attests to documenting i n the medical record they obtained, updated, or reviewed the patient's current medications. TECHNICAL DOCUMENTATION: JOB ID: [id number] [employer]- All Rights Reserved Reading location - IP/workstation name: [email or web address]
== END ==
LOC: WI 12:26
PROVIDERS: ATTEND Internal Medicine Hematology & Oncology
DX: N63.10 Unspecified lump in the right breast, unspecified quadrant (principal); Z85.858 Personal history of malignant neoplasm of other endocrine glands
CPT/HCPCS: 88305 ×2; 19083; J3490

== ENCOUNTER → 2019-05-05 | Outpatient (CLI) | payer OTHER ==
--- NOTE | 2019-05-05 10:16 | WOMENS IMAGING REPORT ---
EXAM DESCRIPTION: U/S BREAST UNILAT LIMITED COMPLETED DATE/TIME: 05/05/2019 9:21 am REASON FOR STUDY: (N63.0)UNSPECIFIED LUMP IN UNSPECIFIED BREAST N63.0 UNSPECIFIED LUMP IN UNSPECIFI ED BREAST COMPARISON: Mammograms and breast ultrasound 11/12/2018, 11/27/2018 TECHNIQUE: Real-time and static grayscale imaging performed of the right breast targeted to the area of mammographic concern. Selected color Doppler images recorded. LIMITATIONS: None. FINDINGS: MASS: No mass identified. Normal glandular tissue. OTHER: Multiple benign small cysts are present at the 12 to 1 o'clock position less prominent than on previous exams. 5 mm, 6 mm, and 5.5 mm oil cysts are present in the 12 to 1 o'clock position, small er than on previous exams, benign. No worrisome acoustic absorption. No solid nodules. No dilated ducts. IMPRESSION: Benign oil cysts right breast 12 to 1 o'clock position BIRAD: 2 Benign findings. RECOMMENDATION: RECOMMENDED FOLLOW-UP: Please continue yearly bilateral screening mammography/tomosy nthesis in August 2019 COMMENT: The [employer] (ACR) has developed recommendations for screening MRI of the breasts in certain patient populations, to be used in conjunction with mammography. Breast MRI s urveillance may be appropriate for women with more than 20% lifetime risk of developing breast cancer as determined by genetic testing, significant family history of the disease, or history of mantle r adiation for Hodgkins Disease. ACR Practice Guidelines 2008. TECHNICAL DOCUMENTATION: JOB ID: [id number] [employer]- All Rights Reserved Reading location - IP/workstation name: [email or web address]
== END ==
LOC: WI 08:13
PROVIDERS: ATTEND Internal Medicine Hematology & Oncology
DX: N60.01 Solitary cyst of right breast (principal)
CPT/HCPCS: 76642

== ENCOUNTER → 2019-09-28 | Outpatient (CLI) | payer OTHER ==
--- NOTE | 2019-09-28 15:07 | WOMENS IMAGING REPORT ---
EXAM DESCRIPTION: BILAT DIAGNOSTIC MAMMO W/CAD; U/S BREAST UNILAT LIMITED COMPLETED DATE/TIME: 09/28/2019 1:28 pm; 09/28/2019 2:00 pm REASON FOR STUDY: N63.20 BILAT DX; LEFT BREAST LUMP N63.20 N63.20 UNSPECIFIED LUMP IN THE LEFT [address], UNSPECIFIED QUAD COMPARISON: to 2015. EXAM PARAMETERS: Standard craniocaudal and mediolateral oblique views of each breast recorded using digital acquisition. Additional left true lateral view. Targeted left breast ultrasound to the region of clinical concern. Read with the assistance of CAD: .[facility] - [employer] Version 9.2 LIMITATIONS: [employer]. 10 images necessary to cover the entirety of the bilateral breasts. FINDINGS: RIGHT BREAST MASSES: No suspicious masses. CALCIFICATIONS: No new or suspicious calcifications. ARCHITECTURAL DISTORTION: None. ASYMMETRY: None noted. OTHER: No other significant findings. LEFT BREAST MASSES: No suspicious masses. CALCIFICATIONS: No new or suspicious calcifications. ARCHITECTURAL DISTORTION: None. ASYMMETRY: None noted. OTHER: No other significant finding. Ultrasound left breast: Negative. Scanning is performed 12- 2 o'clock (patient can no longer palpat e abnormality here). No mass or tissue distortion. IMPRESSION: Negative mammography and left breast ultrasound. BREAST DENSITY: c. The breasts are heterogeneously dense, which may obscure small masses. BIRAD: ASSESSMENT: 1 Negative. RECOMMENDATION: RECOMMENDED FOLLOW UP: Clinical followup. Screening mammography on an annual basis. SPECIFIC INTERVENTION/IMAGING/CONSULTATION RECOMMENDED:No additional intervention/ imaging/consultati on needed at this time. COMMUNICATION:No significant abnormalities to discuss with the patient today. COMMENT: The patient has been notified of the results by letter per MQSA requirements. Additional no tification policies are in place for contacting patient with suspicious or incomplete findings. Quality ID #225: The [employer] recommends an annual screening mammogram for women aged 40 years or over. This facility utilizes a reminder system to ensure that all patients receive reminder letters, and/or direct phone calls for appointments. This includes reminders for routine scr eening mammograms, diagnostic mammograms, or other Breast Imaging Interventions when appropriate. Th is patient will be placed in the appropriate reminder system. TECHNICAL DOCUMENTATION: FINDING NUMBER: (1) ASSESSMENT: (1) JOB ID: [id number] [employer]- All Rights Reserved Reading location - IP/workstation name: [email or web address]
--- NOTE | 2019-09-28 15:07 | WOMENS IMAGING REPORT ---
EXAM DESCRIPTION: BILAT DIAGNOSTIC MAMMO W/CAD; U/S BREAST UNILAT LIMITED COMPLETED DATE/TIME: 09/28/2019 1:28 pm; 09/28/2019 2:00 pm REASON FOR STUDY: N63.20 BILAT DX; LEFT BREAST LUMP N63.20 N63.20 UNSPECIFIED LUMP IN THE LEFT [address], UNSPECIFIED QUAD COMPARISON: to 2015. EXAM PARAMETERS: Standard craniocaudal and mediolateral oblique views of each breast recorded using digital acquisition. Additional left true lateral view. Targeted left breast ultrasound to the region of clinical concern. Read with the assistance of CAD: .[facility] - [facility] Manager Version 9.2 LIMITATIONS: [employer]. 10 images necessary to cover the entirety of the bilateral breasts. FINDINGS: RIGHT BREAST MASSES: No suspicious masses. CALCIFICATIONS: No new or suspicious calcifications. ARCHITECTURAL DISTORTION: None. ASYMMETRY: None noted. OTHER: No other significant findings. LEFT BREAST MASSES: No suspicious masses. CALCIFICATIONS: No new or suspicious calcifications. ARCHITECTURAL DISTORTION: None. ASYMMETRY: None noted. OTHER: No other significant finding. Ultrasound left breast: Negative. Scanning is performed 12- 2 o'clock (patient can no longer palpat e abnormality here). No mass or tissue distortion. IMPRESSION: Negative mammography and left breast ultrasound. BREAST DENSITY: c. The breasts are heterogeneously dense, which may obscure small masses. BIRAD: ASSESSMENT: 1 Negative. RECOMMENDATION: RECOMMENDED FOLLOW UP: Clinical followup. Screening mammography on an annual basis. SPECIFIC INTERVENTION/IMAGING/CONSULTATION RECOMMENDED:No additional intervention/ imaging/consultati on needed at this time. COMMUNICATION:No significant abnormalities to discuss with the patient today. COMMENT: The patient has been notified of the results by letter per MQSA requirements. Additional no tification policies are in place for contacting patient with suspicious or incomplete findings. Quality ID #[id number]: The [employer] recommends an annual screening mammogram for women aged 40 years or over. This facility utilizes a reminder system to ensure that all patients receive reminder letters, and/or direct phone calls for appointments. This includes reminders for routine scr eening mammograms, diagnostic mammograms, or other Breast Imaging Interventions when appropriate. Th is patient will be placed in the appropriate reminder system. TECHNICAL DOCUMENTATION: FINDING NUMBER: (1) ASSESSMENT: (1) JOB ID: [id number] [employer]- All Rights Reserved Reading location - IP/workstation name: [email or web address]
== END ==
LOC: WI 12:55
PROVIDERS: ATTEND Physician Assistant
DX: N63.20 Unspecified lump in the left breast, unspecified quadrant (principal)
CPT/HCPCS: 76642; 77066

== ENCOUNTER → 2020-10-02 | Outpatient (CLI) | payer OTHER ==
--- NOTE | 2020-10-02 16:25 | WOMENS IMAGING REPORT ---
EXAM DESCRIPTION: 3D SCREENING MAMMO BILAT IMAGES COMPLETED DATE/TIME: 10/02/2020 3:33 pm REASON FOR STUDY: Z12.31 ENCOUNTER FOR SCREENING MAMMOGRAM FOR MALIGNANT NEOPLASM OF BREAST Z12.31 ENCNTR SCREEN MAMMOGRAM FOR MALIGNANT NEOPLASM OF LEIGH COMPARISON: 2016 and subsequent. EXAM PARAMETERS: Views: Standard craniocaudal and mediolateral oblique views of each breast recorded using digital acquisition and breast tomosynthesis. Read with the assistance of CAD. .[facility] - [employer]ator Version 9.2 LIMITATIONS: None. FINDINGS: No suspicious masses, suspicious calcifications or architectural distortion. No areas of c oncern. IMPRESSION: NEGATIVE MAMMOGRAM. BIRADS 1. BREAST DENSITY: b. There are scattered areas of fibroglandular density. BIRAD: ASSESSMENT: 1 NEGATIVE RECOMMENDATION: ROUTINE SCREENING COMMENT: The patient has been notified of the results by letter per MQSA requirements. Additional no tification policies are in place for contacting patient with suspicious or incomplete findings. Quality ID #[id number]: The [employer] recommends an annual screening mammogram for women aged 40 years or over. This facility utilizes a reminder system to ensure that all patients receive reminder letters, and/or direct phone calls for appointments. This includes reminders for routine scr eening mammograms, diagnostic mammograms, or other Breast Imaging Interventions when appropriate. Th is patient will be placed in the appropriate reminder system. TECHNICAL DOCUMENTATION: FINDING NUMBER: (1) ASSESSMENT: (1) JOB ID: [id number] [employer]- All Rights Reserved Reading location - IP/workstation name: [email or web address]
== END ==
LOC: WI 15:01
PROVIDERS: ATTEND Physician Assistant
DX: Z12.31 Encounter for screening mammogram for malignant neoplasm of breast (principal)
CPT/HCPCS: 77063; 77067